=== PATIENT | female | born 1950 | race Caucasian/White ===

== ENCOUNTER → 2018-10-06 18:33 | Outpatient (CLI) | payer OTHER, SELFPAY ==
--- NOTE | 2018-10-06 | DI.MRI.S_ITS ---
PROCEDURE: MR KNEE LT WO CON INDICATIONS: Left knee pain TECHNIQUE: Noncontrast sagittal PD fast spin echo and T2 fast spin echo with fat saturation, sagittal 3-D FLASH with fat saturation; coronal T1 spin echo and PD fast spin echo with fat saturation, and axial PD fast spin echo with fat saturation through the knee. COMPARISON: None. FINDINGS: Image quality: Excellent. Menisci: There is an oblique tear of the anterior horn of the lateral meniscus which extends to the inferior articular surface. The medial meniscus demonstrates normal morphology and internal signal. The meniscal root ligaments appear intact. Cruciate ligaments: The anterior and posterior cruciate ligaments appear intact. Medial structures: The medial collateral ligament appears intact. The posterior oblique ligament, semimembranosus tendon insertions, oblique popliteal ligament, and meniscocapsular junction appear intact. Visualized portions of the pes anserinus tendons appear normal. No abnormal bursal fluid. Lateral structures: The lateral collateral ligament, long and short heads of the biceps femoris tendon appear intact. The popliteus tendon appears normal; the popliteofibular ligament appears intact. The posterosuperior and anteroinferior popliteomeniscal fascicles appear intact. The arcuate and fabellofibular ligaments appear intact, on either side of the lateral inferior geniculate artery. Iliotibial band appears normal. Anterior structures: The quadriceps and patellar tendons appear intact. Patellar alignment is normal. No femoral trochlear dysplasia or ventral trochlear prominence. No edema in the infrapatellar fat pad. Bones and cartilage: No bone marrow contusions or fractures. There is full-thickness loss of articular cartilage involving the lateral tibial plateau with subchondral marrow edema and cyst in the lateral tibial plateau. There is full-thickness loss of articular cartilage involving the lateral facet of the patella with subchondral cyst formation and reactive edema. Joint space: There is a small joint effusion. Moderate-sized popliteal cyst is noted. Normal appearing synovial plicae are incidentally noted. IMPRESSION: 1. Tear of the anterior horn of the lateral meniscus. 2. Lateral and patellofemoral compartment osteoarthritis with full-thickness loss of articular cartilage involving the lateral tibial plateau and the lateral facet of the patella. 3. Small joint effusion. 4. Moderate-sized popliteal cyst. Dictated by: Saranya Mckeon MD, PhD on 10/07/2018 at 22:17 Approved by: Saranya Mckeon MD, PhD on 10/07/2018 at 22:23
== END ==
PROVIDERS: PCP Physician Assistant; Visit Provider Physician Assistant
DX: M25.562 Pain in left knee (principal); S83.282A Other tear of lateral meniscus, current injury, left knee, initial encounter; M17.12 Unilateral primary osteoarthritis, left knee; M25.462 Effusion, left knee; M71.22 Synovial cyst of popliteal space [Baker], left knee
CPT/HCPCS: 73721

== ENCOUNTER → 2018-11-08 12:59 | Outpatient (CLI) | payer OTHER, SELFPAY ==
--- NOTE | 2018-11-08 | DI.MG.S_ITS ---
BILATERAL DIGITAL SCREENING MAMMOGRAM 3D/2D WITH CAD: 11/08/2018 CLINICAL: Routine screening. Family history of breast cancer. Comparison is made to exams dated: 11/04/2017 mammogram, 10/01/2016 mammogram, and 09/22/2015 mammogram - [facility]. The tissue of both breasts is heterogeneously dense. This may lower the sensitivity of mammography. Current study was also evaluated with a Computer Aided Detection (CAD) system. No significant masses, calcifications, or other findings are seen in either breast. There has been no significant interval change. IMPRESSION: NEGATIVE There is no mammographic evidence of malignancy. A 1 year screening mammogram is recommended. This exam was interpreted at Station ID: [id number]. NOTE: For mammograms, a report in lay terms will be sent to the patient. Approximately 15% of breast malignancies will not be visualized mammographically. In the management of a palpable breast mass, a negative mammogram must not discourage biopsy of a clinically suspicious lesion. Electronically Signed By: Mirlande sun/donal:11/08/2018 16:15:30 letter sent: Normal Exam ACR BI-RADS Category 1: Negative 3341F
== END ==
PROVIDERS: PCP Physician Assistant; Visit Provider Physician Assistant
DX: Z12.31 Encounter for screening mammogram for malignant neoplasm of breast (principal); Z80.3 Family history of malignant neoplasm of breast
CPT/HCPCS: 77063; 77067

== ENCOUNTER → 2019-07-24 12:49 | Outpatient (ROUT) | payer OTHER, SELFPAY ==
[2019-07-24 13:00] LABS: Add Manual Diff / Slide Review NO; Basophils Absolute Auto 0 /uL (0-100); Basophils Percent Auto 0.5 % (0-2); Eosinophils Absolute Auto 0 /uL (0-450); Eosinophils Percent Auto 1.2 % (2-4); Hematocrit 38.9 % (36-46); Hemoglobin 13.5 g/dL (12.0-16.0); Lymphocytes Absolute Auto 1200 /uL (1100-4500); Lymphocytes Percent Auto 36.8 % (25-40); Mean Corpuscular HGB Conc 34.8 % (30-36); Mean Corpuscular Hemoglobin 31.9 PG (26-34); Mean Corpuscular Volume 91.8 fL (80-100); Monocytes Absolute Auto 200 /uL (0-900); Neutrophils Absolute Auto 1800 /uL (1500-7000); Neutrophils Percent Auto 54.5 % (50-75); Platelet Count 143 X10^3/uL (150-400); Red Blood Cell Count 4.24 X10^6/uL (4.0-5.2); Red Cell Distribution Width 12.9 % (11.6-14.8); White Blood Cell Count 3.3 X10^3/uL (4.5-11.0)
[2019-07-24 13:06] LABS: Alanine Aminotransferase 28 IU/L (9-52); Albumin 3.8 g/dL (3.5-5.0); Albumin Globulin Ratio 1.5 (1.0-2.8); Alkaline Phosphatase 62 U/L (38-126); Aspartate Aminotransferase 33 IU/L (14-36); BUN Creatinine Ratio 25.7 (6-22); Bilirubin Total 0.5 mg/dL (0.2-1.3); Blood Urea Nitrogen 18 mg/dL (7-17); Calcium 9.3 mg/dL (8.4-10.2); Carbon Dioxide 31 mmol/L (22-32); Chloride 104 mmol/L (98-107); Cholesterol 181 mg/dL (140-199); Estimated Glomerular Filt Rate > 60.0 mL/min (>60); Globulin 2.5 g/dL (1.7-4.1); Glucose 84 mg/dL (80-110); HDL Cholesterol 73 mg/dL (40-60); HEMOLYSIS < 15 (0-50); LDL Cholesterol Calculated 101 mg/dL (<100); Potassium 4.3 mmol/L (3.4-5.1); Sodium 140 mmol/L (137-145); Total Protein 6.3 g/dL (6.3-8.2); Triglycerides 34 mg/dL (35-150)
== END ==
PROVIDERS: PCP Physician Assistant; Visit Provider Physician Assistant
DX: E78.5 Hyperlipidemia, unspecified (principal); R53.83 Other fatigue
CPT/HCPCS: 80053; 80061; 85025

== ENCOUNTER → 2019-08-30 13:49 | Outpatient (CLI) | payer OTHER, SELFPAY ==
[2019-08-30 14:31] LABS: Add Manual Diff / Slide Review NO; Basophils Absolute Auto 0 /uL (0-100); Basophils Percent Auto 0.6 % (0-2); Eosinophils Absolute Auto 0 /uL (0-450); Eosinophils Percent Auto 1.1 % (2-4); Hematocrit 39.9 % (36-46); Hemoglobin 13.8 g/dL (12.0-16.0); Lymphocytes Absolute Auto 1400 /uL (1100-4500); Lymphocytes Percent Auto 40.1 % (25-40); Mean Corpuscular HGB Conc 34.5 % (30-36); Mean Corpuscular Hemoglobin 31.7 PG (26-34); Mean Corpuscular Volume 91.9 fL (80-100); Monocytes Absolute Auto 200 /uL (0-900); Monocytes Percent Auto 7.1 % (3-14); Neutrophils Absolute Auto 1800 /uL (1500-7000); Neutrophils Percent Auto 51.1 % (50-75); Platelet Count 162 X10^3/uL (150-400); Red Blood Cell Count 4.35 X10^6/uL (4.0-5.2); Red Cell Distribution Width 12.8 % (11.6-14.8); White Blood Cell Count 3.4 X10^3/uL (4.5-11.0)
== END ==
PROVIDERS: PCP Physician Assistant; Visit Provider Physician Assistant
DX: D72.819 Decreased white blood cell count, unspecified (principal)
CPT/HCPCS: 36415; 85025

== ENCOUNTER → 2019-11-22 09:26 | Outpatient (CLI) | payer MEDICARE, SELFPAY ==
--- NOTE | 2019-11-22 | DI.MG.S_ITS ---
BILATERAL DIGITAL SCREENING MAMMOGRAM 3D/2D WITH CAD: 11/22/2019 CLINICAL: Routine screening. Family history of breast cancer. Comparison is made to exams dated: 11/08/2018 mammogram, 11/04/2017 mammogram, and 10/01/2016 mammogram - [facility]. The tissue of both breasts is heterogeneously dense. This may lower the sensitivity of mammography. Current study was also evaluated with a Computer Aided Detection (CAD) system. No significant masses, calcifications, or other findings are seen in either breast. There has been no significant interval change. IMPRESSION: NEGATIVE There is no mammographic evidence of malignancy. A 1 year screening mammogram is recommended. This exam was interpreted at Station ID: [id number]. NOTE: For mammograms, a report in lay terms will be sent to the patient. Approximately 15% of breast malignancies will not be visualized mammographically. In the management of a palpable breast mass, a negative mammogram must not discourage biopsy of a clinically suspicious lesion. Electronically Signed By: Giovanny bess/donal:11/22/2019 10:29:03 letter sent: Normal Exam ACR BI-RADS Category 1: Negative 3341F
== END ==
PROVIDERS: PCP Physician Assistant; Referring Provider Physician Assistant; Visit Provider Physician Assistant
DX: Z12.31 Encounter for screening mammogram for malignant neoplasm of breast (principal); Z80.3 Family history of malignant neoplasm of breast
CPT/HCPCS: 77063; 77067

== ENCOUNTER → 2019-11-30 15:01 | Outpatient (CLI) | payer MEDICARE, SELFPAY ==
[2019-11-30 15:52] LABS: Add Manual Diff / Slide Review NO; Basophils Absolute Auto 0 /uL (0-100); Basophils Percent Auto 0.7 % (0-2); Eosinophils Absolute Auto 100 /uL (0-450); Eosinophils Percent Auto 1.4 % (2-4); Hematocrit 39.7 % (36-46); Hemoglobin 13.6 g/dL (12.0-16.0); Lymphocytes Absolute Auto 1400 /uL (1100-4500); Lymphocytes Percent Auto 36.1 % (25-40); Mean Corpuscular HGB Conc 34.2 % (30-36); Mean Corpuscular Hemoglobin 31.3 PG (26-34); Mean Corpuscular Volume 91.6 fL (80-100); Monocytes Absolute Auto 300 /uL (0-900); Monocytes Percent Auto 7.4 % (3-14); Neutrophils Absolute Auto 2100 /uL (1500-7000); Neutrophils Percent Auto 54.4 % (50-75); Platelet Count 181 X10^3/uL (150-400); Red Blood Cell Count 4.33 X10^6/uL (4.0-5.2); Red Cell Distribution Width 12.5 % (11.6-14.8); White Blood Cell Count 3.8 X10^3/uL (4.5-11.0)
== END ==
PROVIDERS: PCP Physician Assistant; Referring Provider Physician Assistant; Visit Provider Physician Assistant
DX: E78.5 Hyperlipidemia, unspecified (principal)
CPT/HCPCS: 36415; 85025

== ENCOUNTER 2020-07-15 03:42 | Emergency (ER) | payer MEDICARE, SELFPAY ==
--- NOTE | 2020-07-15 03:43 | ED_ITS ---
HPI - Headache General Chief Complaint: Dizziness Stated Complaint: headache/ nausea vomiting dizziness Time Seen by Provider: 07/15/20 03:43 Source: patient and family Mode of arrival: Ambulatory Limitations: no limitations History of Present Illness HPI Narrative: 69F nonsmoker with a history of hyperlipidemia presents with the chief complaint of a sudden onset severe headache associated with dizziness and multiple episodes of vomiting which started shortly before her arrival. She states she went to sleep in her normal state of health and awoke, noting severe headache with even subtle motion and significant dizziness, which is also made worse by motion of her head. She finds relief sitting still, but not complete relief. She denies any history of the same. She denies any recent injuury or trauma. She's had no runny nose, sneezing, sore throat, cough, or trouble breathing. She denies blurred or double vision but does state that things are moving. Her balance is off and she is held up by her . She denies change in diet or medications. She denies recent travel or exposure to persons known to have COVID19. MD Complaint: headache Onset (ago): hour(s) Onset description: sudden Location: diffuse Severity: severe Severity scale (1-10): 9 Quality: aching, throbbing and different than previous headaches Relieving factors: rest Exacerbating factors: movement of head/neck, sitting/standing and light Context: occurred at rest Associated symptoms: nausea, vomiting and photophobia Treatments prior to arrival: ibuprofen Related Data Home Medications Medication Instructions Recorded Confirmed CALCIUM/CHOLECALCIFEROL/SODI 1 tab PO BID #0 05/07/11 (#CALCIUM WITH VITAMIN D 600 MG-400 IU-5 MG) Glucosamine Sulfate (GLUCOSAMINE) 500 mg PO BID #0 05/07/11 [COLON CARE] BID #0 05/07/11 simvastatin 20 mg PO QDAY #0 05/07/11 Previous Rx's Medication Instructions Recorded ketorolac 10 mg PO Q6H PRN #14 tab 07/15/20 metoclopramide HCl [Reglan] 10 mg PO Q6H PRN #10 tab 07/15/20 Allergies Allergy/AdvReac Type Severity Reaction Status Date / Time No Known Drug Allergies Allergy Verified 07/15/20 04:00 Review of Systems Constitutional Constitutional: Denies chills, Denies fatigue, Denies fever(s), Denies frequent falls, Reports headache(s), Denies lethargy and Denies weakness Eyes Eyes: Denies change in vision, Denies eye discharge, Denies irritation and Denies loss of vision ENT Ears, Nose, Mouth, and Throat: Denies change in voice, Reports dizziness, Reports headache(s), Denies neck pain, Denies sore throat and Denies throat swelling Cardiovascular Cardiovascular: Denies chest pain, Denies irregular heart rhythm, Denies lightheadedness, Denies palpitations, Denies dyspnea, Denies dyspnea on exertion and Denies orthopnea Respiratory Respiratory: Denies cough, Denies dyspnea, Denies dyspnea on exertion and Denies wheezing Gastrointestinal Gastrointestinal: Denies abdominal pain, Denies change in bowel habits, Denies diarrhea, Reports nausea and Reports vomiting Musculoskeletal Musculoskeletal: Denies neck pain and Denies numbness Integumentary/Breasts Skin/Breast: Denies pruritus, Denies erythema, Denies rash and Denies wounds Neurologic Neurologic: Denies behavioral changes, Denies confusion, Reports dizziness, Denies frequent falls, Reports headache(s), Denies loss of vision, Denies numbness and Denies weakness Psychiatric Psychiatric: Denies anxiety, Denies behavioral changes, Denies confusion, Denies depression, Denies homicidal ideation and Denies suicidal ideation Endocrine Endocrine: Denies fatigue, Denies flushing and Denies palpitations Hematologic/Lymphatic Hematologic/Lymphatic: Denies easy bruising Allergic/Immunologic Allergic/Immunologic: Denies urticaria, Denies throat swelling and Denies wheezing Patient History Social History Smoking Status: Never smoker Exam Narrative Exam Narrative: GENERAL: [69] year old patient appears stated age. Well- nourished, well-developed patient, in obvious distress, eyes closed, rubbing her head, requiring significant assistance with ambulation, stating minimal motion worsening pain and dizziness s. HEAD: Atraumatic. Normocephalic. EYES: Pupils equal round and reactive. Extraocular motions intact. No scleral icterus. No injection or drainage. ENT: Nose without bleeding, purulent drainage. Throat without erythema, tonsillar hypertrophy or exudate. Airway patent. NECK: Trachea midline. Non tender CARDIOVASCULAR: Regular rate and rhythm without murmurs, gallops, or rubs. RESPIRATORY: Clear to auscultation. Breath sounds equal bilaterally. No wheezes, rales, or rhonchi. GASTROINTESTINAL: Abdomen soft, non-tender, nondistended. EXTREMITIES: No edema or joint tenderness. BACK: Nontender without deformity or crepitance. No flank tenderness. NEURO: AOx3. SKIN: No rash or erythema of visible areas Initial Vital Signs Initial Vital Signs: Vital Signs Temperature 97.5 F L 07/15/20 03:57 Pulse Rate 58 L 07/15/20 03:57 Respiratory Rate 16 07/15/20 03:57 Blood Pressure 169/71 H 07/15/20 03:57 Pulse Oximetry 100 07/15/20 03:57 Scores NIH Stroke Scale Level of Conciousness: Alert, keenly responsive Ask month/age: Answers both questions correctly. Open/close eyes, close hand: Performs both tasks correctly Best gaze horizontal: Normal Visual sandra: No visual loss Facial palsy: Normal symetrical movement Left arm drift: No drift for full 10 sec Right arm drift: No drift for full 10 sec Left leg drift: No drift for full 5 sec Right leg drift: No drift for full 5 sec Limb ataxia: Absent Sensory on face/arms/legs: Normal, no sensory loss Best language: No aphasia, normal Dysarthria: Normal Extinction or inattention: No abnormality Total NIH Stroke scale score: 0 Course Orders Ordered: ED Orders 07/15/20 03:58 CT head/brain wo con Stat 07/15/20 04:00 Basic Metabolic Panel Stat Complete Blood Count AUTO DIFF Stat 07/15/20 04:42 CT angio head and neck Stat Discontinued Medications Dexamethasone (Decadron) 10 mg IV NOW ONE Stop: 07/15/20 04:29 Last Admin: 07/15/20 04:36 Dose: 10 mg Documented by: NINO Sodium Chloride (Normal Saline 0.9%) 1,000 mls @ 1,000 mls/hr IV BOLUS ONE Stop: 07/15/20 04:56 Last Admin: 07/15/20 04:06 Dose: 1,000 mls/hr Documented by: JOE Ketorolac Tromethamine (Toradol) 15 mg IV NOW ONE Stop: 07/15/20 04:29 Last Admin: 07/15/20 04:36 Dose: 15 mg Documented by: NINO Metoclopramide HCl (Reglan) 10 mg IV NOW ONE Stop: 07/15/20 03:58 Last Admin: 07/15/20 04:06 Dose: 10 mg Documented by: JOE Reevaluation(s) Reevaluation #1: Patient has a new complete resolution of symptoms after the above-stated therapies. She is able to communicate without difficulty, keep her eyes open, move her head, perform orthostatics ambulate through the department without trouble very Vital Signs Vital signs: Vital Signs - 8 hr 07/15/20 03:57 Temperature 97.5 F L Pulse Rate 58 L Respiratory Rate 16 Blood Pressure 169/71 H Pulse Oximetry 100 MDM - Headache Lab Data Result diagrams: 07/15/20 04:00 07/15/20 04:00 Labs: Lab Results 07/15/20 07/15/20 Range/Units 04:00 04:00 WBC 4.9 (4.5-11.0) X10^3/uL RBC 4.32 (4.0-5.2) X10^6/uL Hgb 13.6 (12.0-16.0) g/dL Hct 39.7 (36-46) % MCV 91.8 (80-100) fL MCH 31.6 (26-34) PG MCHC 34.4 (30-36) % RDW 12.9 (11.6-14.8) % Plt Count 164 (150-400) X10^3/uL Neut % (Auto) 69.3 (50-75) % Lymph % (Auto) 23.6 L (25-40) % [place] % (Auto) 6.2 (3-14) % Eos % (Auto) 0.6 L (2-4) % Baso % (Auto) 0.3 (0-2) % Neut # (Auto) 3400 (2716-7319) /uL Lymph # (Auto) 1100 (7823-9754) /uL [place] # (Auto) 300 (0-900) /uL Eos # (Auto) 0 (0-450) /uL Baso # (Auto) 0 (0-100) /uL Sodium 138 (137-145) mmol/L Potassium 4.4 (3.4-5.1) mmol/L Chloride 103 (98-107) mmol/L Carbon Dioxide 32 (22-32) mmol/L BUN 16 (7-17) mg/dL Creatinine 0.66 (0.52-1.04) mg/dL Estimated GFR > 60.0 (>60) mL/min BUN/Creatinine Ratio 24.2 H (6-22) Glucose 114 H (80-110) mg/dL Calcium 9.2 (8.4-10.2) mg/dL MDM Narrative Medical decision making narrative: Multiple etiologies for patient's symptoms considered including: [stroke vs. ICH vs. migraine vs. BPPV vs. other] Patient's symptoms improved over duration of stay with above-stated therapies. Findings and discharge diagnosis discussed with patient/family followed by verbalization of understanding Return precautions discussed with patient/family whom verbalize understanding. Discharge Plan Departure Patient Disposition: Home Clinical Impression: Dizziness Headache Qualifiers: Headache type: unspecified Headache chronicity pattern: acute headache Intractability: not intractable Qualified Code(s): R51.9 - Headache, unspecified Vomiting Qualifiers: Vomiting type: unspecified Vomiting Intractability: non-intractable Nausea presence: with nausea Qualified Code(s): R11.2 - Nausea with vomiting, unspecified Instructions: DI for Migraine Activity Restrictions/Additional Instructions: *You have been diagnosed with [severe headache with dizziness and vomiting, very likely could be secondary to an atypical migraine. Your physical exam, labs, CT scans, and response to medications are very reassuring.] *What to do: *Take medications as directed *Follow up with your primary care provider in 2-3 days, call for an appointment. Let them know you were seen in the Emergency Department and that we ask that you be seen in follow up *Return to ER if you should have any new, worsening or concerning symptoms Prescriptions: New ketorolac 10 mg tablet 10 mg PO Q6H PRN (Reason: pain) Qty: 14 RF: 0 metoclopramide HCl [Reglan] 10 mg tablet 10 mg PO Q6H PRN (Reason: nausea and vomiting) Qty: 10 RF: 0 No Action [COLON CARE] BID Qty: 0 RF: 0 Glucosamine Sulfate (GLUCOSAMINE) 500 mg PO BID Qty: 0 RF: 0 simvastatin 10 MG tablet 20 mg PO QDAY Qty: 0 RF: 0 CALCIUM/CHOLECALCIFEROL/SODI (#CALCIUM WITH VITAMIN D 600 MG-400 IU-5 MG) 1 tab PO BID Qty: 0 RF: 0 Referrals: France Winchester PA-C [Primary Care Provider] -
[2020-07-15 03:57] VITALS: BP 169/71; PULSE 58; RESP 16; TEMP 36.4; O2SAT 100; BMI 20.3
--- NOTE | 2020-07-15 03:58 | DI.CT.S_ITS ---
PROCEDURE: CT HEAD/BRAIN WO CON INDICATIONS: severe, sudden onset headache with vomiting TECHNIQUE: Noncontrast 4.5 mm thick angled axial sections acquired from the foramen magnum to the vertex, with coronal and sagittal reformats. For radiation dose reduction, the following was used: automated exposure control, adjustment of mA and/or kV according to patient size. COMPARISON: None. FINDINGS: Image quality: Excellent. CSF spaces: Basal cisterns are patent. No extra-axial fluid collections. Ventricles are normal in size and shape. Brain: No midline shift. No intracranial masses or hemorrhage. Morris-white matter interface is normal. Skull and face: Calvarium and visualized facial bones are intact, without suspicious lesions. Note is made of a partially calcified ovoid structure at the left superior occipital area, this is located near the occipital parietal junction, and measures up to 1.7 cm. Please correlate clinically. Sinuses: Visualized sinuses and mastoids are clear. IMPRESSION: No hemorrhage, no brain lesion found. Incidental note is made of a partially calcified ovoid 1.7 cm scalp mass-like lesion seen at the superior left occipital parietal junction area. Please correlate clinically. This is likely chronic by appearance and produces no change in the adjacent cortex. Dictated by: Ortega Spaulding M.D. on 07/15/2020 at 8:32 Approved by: Ortega Spaulding M.D. on 07/15/2020 at 8:35
[2020-07-15] MEDS: SODIUM CHLORIDE 0.9% 1,000 ML 1000 ML IV (04:06)
[2020-07-15] MEDS: METOCLOPRAMIDE 10 MG/2 ML INJ IV (04:06)
[2020-07-15 04:14] LABS: Add Manual Diff / Slide Review NO; Basophils Absolute Auto 0 /uL (0-100); Basophils Percent Auto 0.3 % (0-2); Eosinophils Absolute Auto 0 /uL (0-450); Eosinophils Percent Auto 0.6 % (2-4); Hematocrit 39.7 % (36-46); Hemoglobin 13.6 g/dL (12.0-16.0); Lymphocytes Absolute Auto 1100 /uL (1100-4500); Lymphocytes Percent Auto 23.6 % (25-40); Mean Corpuscular HGB Conc 34.4 % (30-36); Mean Corpuscular Hemoglobin 31.6 PG (26-34); Mean Corpuscular Volume 91.8 fL (80-100); Monocytes Absolute Auto 300 /uL (0-900); Monocytes Percent Auto 6.2 % (3-14); Neutrophils Absolute Auto 3400 /uL (1500-7000); Neutrophils Percent Auto 69.3 % (50-75); Platelet Count 164 X10^3/uL (150-400); Red Blood Cell Count 4.32 X10^6/uL (4.0-5.2); Red Cell Distribution Width 12.9 % (11.6-14.8); White Blood Cell Count 4.9 X10^3/uL (4.5-11.0)
[2020-07-15 04:23] LABS: BUN Creatinine Ratio 24.2 (6-22); Blood Urea Nitrogen 16 mg/dL (7-17); Calcium 9.2 mg/dL (8.4-10.2); Carbon Dioxide 32 mmol/L (22-32); Chloride 103 mmol/L (98-107); Estimated Glomerular Filt Rate > 60.0 mL/min (>60); Glucose 114 mg/dL (80-110); HEMOLYSIS 50 (0-50); Potassium 4.4 mmol/L (3.4-5.1); Sodium 138 mmol/L (137-145)
[2020-07-15] MEDS: KETOROLAC 60 MG/2 ML VIAL 15 MG IV (04:36)
[2020-07-15] MEDS: DEXAMETHASONE 10 MG/ML VIAL IV (04:36)
--- NOTE | 2020-07-15 04:42 | DI.CT.S_ITS ---
PROCEDURE: CT ANGIO HEAD AND NECK INDICATIONS: severe headache, dizziness, vomiting TECHNIQUE: Pre-contrast 4.5 mm thick sections acquired from the foramen magnum to the vertex. After the administration of intravenous contrast, 1 mm thick sections acquired from the aortic arch through the [place]. Post-contrast 4.5 mm thick sections then re-acquired from the foramen magnum to the vertex. 3-dimensional [id number] (MIP) and/or volume rendering reformats were acquired of the central intracranial vasculature and neck separately. COMPARISON: [facility], CT, CT HEAD/BRAIN WO CON, 07/15/2020, 4:00. FINDINGS: Image quality: Excellent. BRAIN: CSF spaces: Ventricles are normal in size and shape. Basal cisterns are patent. No extra-axial fluid collections. Brain: No midline shift. No intracranial bleeds or masses. Morris-white matter interface appears intact. Skull and face: Calvarium and facial bones appear intact, without suspicious lesions. Note is made of several bilateral ovoid partially calcified scalp structures with internal calcifications, in addition to the similar structure seen more superiorly on head CT scanning same day at the superior left occipital parietal calvarial margin.. Orbits appear normal. Sinuses: Sinuses and mastoids are clear. HEAD CT ANGIOGRAPHY: Anterior circulation: Intracranial internal carotid arteries are normal in size and flow. The flow within the paired anterior cerebral arteries is normal and symmetric. The flow within the middle cerebral arteries is normal and symmetric. The anterior communicating artery is seen. No aneurysms are seen. Posterior circulation: Visualized portions of the vertebral arteries demonstrate normal caliber, and join to form a normal appearing basilar artery. Flow within the posterior cerebral arteries is normal and symmetric. No aneurysms are seen. NECK CT ANGIOGRAPHY: Carotid system: The great vessels demonstrate a conventional anatomy as they arise from the aortic arch. The origins of the common carotid arteries appear patent. The common carotid arteries demonstrate normal caliber and courses. The bifurcation regions are both widely patent. The internal carotid arteries demonstrate normal calibers and courses. Posterior circulation: The origins of the vertebral arteries both appear widely patent. The more superior extracranial portions of both vertebral arteries also demonstrate normal courses and calibers. They join to form a normal appearing basilar artery. Soft tissues: Visualized neck soft tissues demonstrate no suspicious abnormalities. Bones: No suspicious bony lesions. Visualized cervical spine appears normally aligned. IMPRESSION: No evidence of aneurysm, hemorrhage or stenosis involving the cervical and cranial arterial vasculature. Incidental note made of several scattered bilateral ovoid small and moderate-sized scalp structures with internal calcifications, potentially partially calcified sebaceous cysts. The patient presumably would be aware of these structures. They appear chronic.. Any quantitative measurements of stenosis were performed using NASCET criteria. Dictated by: Ortega Spaulding M.D. on 07/15/2020 at 8:35 Approved by: Ortega Spaulding M.D. on 07/15/2020 at 8:42
[2020-07-15 06:06] VITALS: BP 124/75; BP 128/93; BP 141/61; PULSE 56; PULSE 66
== END 2020-07-15 06:17 | disposition home or self-care (01) ==
PROVIDERS: Emergency Provider Emergency Medicine; PCP Physician Assistant
DX: R42 Dizziness and giddiness (principal); R51.9 Headache, unspecified; R11.2 Nausea with vomiting, unspecified
CPT/HCPCS: 36415; 70450; 70496; 70498; 80048; 85025; 93005; 93010; 96361; 96374; 96375; 99284; J1100; J1885; J2765; Q9967

== ENCOUNTER → 2020-10-21 12:10 | Outpatient (CLI) | payer MEDICARE, SELFPAY ==
[2020-10-21] MEDS: COVID-19 VACC #1, MRNA(MOD) 100 MCG/0.5 ML VIAL IM (12:14)
== END ==
PROVIDERS: PCP Physician Assistant; Visit Provider Internal Medicine
DX: Z23 Encounter for immunization (principal)
CPT/HCPCS: 0011A; 91301

== ENCOUNTER 2020-10-22 09:45 | Outpatient (RCR) | payer MEDICARE, OTHER, SELFPAY ==
--- NOTE | 2020-08-06 14:19 | PT.OIE ---
Current Diagnoses Benign paroxysmal vertigo, right ear (08/06/20) Other symptoms and signs involving the nervous system (08/06/20) Dizziness and giddiness (08/06/20) Visit Care Team Role Provider Type France Winchester PA-C Attending Provider Advanced Brush Trimming Machine Setter Primary Care Provider Referring Provider Specialty: Internal Medicine Address: [address] [place] [address], [facility] Email: [email or web address] Initial Evaluation PT-OP-A Visit Information Start: 08/06/20 14:02 Freq: Status: Active Protocol: Document 08/06/20 09:45 DCW (Rec: 08/06/20 14:19 DCW [id number]) Out-Patient Physical Therapy Visit Information Visit Information Visit Type Initial Evaluation Visit Start Time 09:45 Visit Stop Time 10:30 Total Visit Minutes 45 Visit Number 1 Number of MEDICAL HISTORIAN Visits 0 Evaluation Information Evaluation Date 08/06/20 PT-OP-B Current Condition Start: 08/06/20 14:02 Freq: Status: Active Protocol: Document 08/06/20 09:45 DCW (Rec: 08/06/20 14:19 DCW [id number]) Current Condition History of Current Condition Onset Date 07/14/20 Current Complaints Dizziness/instability with positional changes History of Current Condition Pt is a 69 year old female complaining of a one month history of motion-induced vertigo and imbalance. Pt reports episodes last ~5 seconds. Pt's symptoms began on 07/14/20, reports she had some mild vertigo and instability x2 when looking up and bending over during the day, went to bed, and woke up after midnight with terrible spinning, sweating, chills, and nausea/vomiting. Pt reports she felt best if she stayed still, but got worse any time she attempted to move . Pt was taken to the ED, and slowly began to improve. Pt reports she is way better, but I'm still recovering, because she continues to get brief instances of vertigo with sudden movements or changing positions. Pt goes out for walks, which she notes helps her feel better, but she has bnot been going for runs like she usually does, because she fears all the bouncing will make her worse. Pt denies recent hearing changes, tinnitus, diplopia, dysarthria, discoordination, or decreased mentation/ consciousness. Pt reports symptoms are waxing/waning in nature. Pt denies hx of HTN, hyperlipidemia, diabetes, arrhythmia, head trauma, seizure, back/neck problems, CVA, anxiety/panic disorders, depression, or excessive smoking or drinking. Pt does have a history of migraines, but reports she doesn't think she has had any within the last five years. Prior Treatments and Tests CT and CTA at ED, results WNL Treatment Goals Patient/Caregiver Goals I want to know what's going on, and what I can do about it . PT-OP-C Subjective Start: 08/06/20 14:02 Freq: Status: Active Protocol: Document 08/06/20 09:45 DCW (Rec: 08/06/20 14:19 DCW [id number]) OP-PT Subjective Patient Comments Patient Comments They told me it was probably related to my migraines, but that doesn't really seem like it fits very well. When I saw France Mendozatricia, she told me it might have something to do with my inner ear. Patient Reported Progress Improving Patient Questionnaires Dizziness Handicap Inventory DHI Score 42% DHI Functional Impairment 40 to 59% Impaired (Score 40- 59) PT-OP-O Vestibular Start: 08/06/20 14:02 Freq: Status: Active Protocol: Document 08/06/20 09:45 DCW (Rec: 08/06/20 14:19 DCW [id number]) Vestibular Assessment Screening Tests Vestibular Artery Screen Negative Auditory Tests Zimmerman Test Within normal limits Rinne Test Negative Air Conduction Results Equal Visual Testing Smooth Pursuits Horizontal WNL Smooth Pursuits Vertical WNL Saccades Horizontal WNL Gaze Evoked Nystagmus With Fixation Negative Gaze Evoked Nystagmus Without Fixation Negative Heave Test Negative Thrust Head Negative Head Shake Negative Positional Testing [place]-Hallpike Positive Right,Upbeating,< 60 Seconds PT-OP-Q Treatments Start: 08/06/20 14:02 Freq: Status: Active Protocol: Document 08/06/20 09:45 DCW (Rec: 08/06/20 14:19 DCW [id number]) Canalithic Repositioning BPPV Treatment Jaya Affected Canal(s) R Posterior Reps x2 Comments Modified Jaya PT-OP-T Assessment and Plan Start: 08/06/20 14:02 Freq: Status: Active Protocol: Document 08/06/20 09:45 DCW (Rec: 08/06/20 14:19 DCW [id number]) Physical Therapy Assessment Rehab Potential Rehabilitation Potential Excellent Evaluation Complexity Number of Personal Factors/Comorbidities 0 Number of Body Systems Impaired 1-2 Clinical Presentation at Evaluation Stable Impairments Impairments Balance,Vestibular Goals Two Impairment Positive right [place]-Hallpike Purchasing Associate Goal (LTG) Pt to present with negative positional testing bilaterally LTG Duration 09/09/20 One Impairment Pt reports vertigo with positional changes Purchasing Associate Goal (LTG) Pt to report no vertigo with positional changes over the course of one week LTG Duration 09/09/20 Assessment Summary Assessment During right [place]-Hallpike test , pt complained of vertigo and demonstrated strong up- beating, torsional nystagmus lasting approximately 10 seconds, consistent with diagnosis of right-sided posterior canal BPPV, canalithiasis-type. Pt was treated with a right-sided modified Jaya maneuver. Pt complained of symptoms in the first and third position, which is normally indicative of a successful treatment. Further positional testing was negative. Pt was educated on BPPV, expectations for treatment, possible recurrence (BPPV has a ~50% recurrence rate in the five years following treatment), and post -Jaya restrictions. Pt to return in ~1-2 weeks for a follow-up appointment, and intermittently afterward as indicated for treatment of BPPV. Physical Therapy Plan Frequency and Duration Frequency of Treatment Every Other Week Duration of Treatment 6 weeks Plan of Care Start Date 08/06/20 Plan of Care End Date 09/17/20 Therapeutic Interventions Therapeutic Interventions Balance Training,Canalithic Repositioning,Vestibular Rehabilitation Next Visit Focus/Plan Next Note Type Treatment Note Next Visit Plan Positional testing and CRM as indicated
--- NOTE | 2020-08-06 14:19 | PT.OPPOC ---
Physical, Occupational & Speech Therapy At [facility] Current Diagnoses Benign paroxysmal vertigo, right ear (08/06/20) Other symptoms and signs involving the nervous system (08/06/20) Dizziness and giddiness (08/06/20) Visit Care Team Role Provider Type France Winchester PA-C Attending Provider Advanced [employer]analytics Team Lead Primary Care Provider Referring Provider Specialty: Internal Medicine Address: [address] [place] [address], [id number] Email: [email or web address] Plan Of Care PT-OP-T Assessment and Plan Start: 08/06/20 14:02 Freq: Status: Active Protocol: Document 08/06/20 09:45 DCW (Rec: 08/06/20 14:19 DCW [id number]) Physical Therapy Assessment Rehab Potential Rehabilitation Potential Excellent Evaluation Complexity Number of Personal Factors/Comorbidities 0 Number of Body Systems Impaired 1-2 Clinical Presentation at Evaluation Stable Impairments Impairments Balance,Vestibular Goals Two Impairment Positive right [place]-Hallpike Nursing Home Goal (LTG) Pt to present with negative positional testing bilaterally LTG Duration 09/09/20 One Impairment Pt reports vertigo with positional changes Nursing Home Goal (LTG) Pt to report no vertigo with positional changes over the course of one week LTG Duration 09/09/20 Assessment Summary Assessment During right [place]-Hallpike test , pt complained of vertigo and demonstrated strong up- beating, torsional nystagmus lasting approximately 10 seconds, consistent with diagnosis of right-sided posterior canal BPPV, canalithiasis-type. Pt was treated with a right-sided modified Jaya maneuver. Pt complained of symptoms in the first and third position, which is normally indicative of a successful treatment. Further positional testing was negative. Pt was educated on BPPV, expectations for treatment, possible recurrence (BPPV has a ~50% recurrence rate in the five years following treatment), and post -Jaya restrictions. Pt to return in ~1-2 weeks for a follow-up appointment, and intermittently afterward as indicated for treatment of BPPV. Physical Therapy Plan Frequency and Duration Frequency of Treatment Every Other Week Duration of Treatment 6 weeks Plan of Care Start Date 08/06/20 Plan of Care End Date 09/17/20 Therapeutic Interventions Therapeutic Interventions Balance Training,Canalithic Repositioning,Vestibular Rehabilitation Next Visit Focus/Plan Next Note Type Treatment Note Next Visit Plan Positional testing and CRM as indicated Plan of Care Dates Plan of Care Start Date 08/06/20 Plan of Care End Date 09/17/20 Electronically Signed by: Jerry Bowden, PT 08/06/20 [id number] Please Sign and Return: I have reviewed this Plan of Care and certify that the skilled therapy services above are required to meet the patient?s needs. Physician Signature Date Printed Name and Credentials Clinical Instructor Signature Printed Name and Credentials
--- NOTE | 2020-09-09 11:47 | PT.OTN ---
Current Diagnoses Benign paroxysmal vertigo, right ear (09/09/20) Other symptoms and signs involving the nervous system (09/09/20) Dizziness and giddiness (09/09/20) Physical Therapy Treatment Note PT-OP-A Visit Information Start: 08/06/20 14:02 Freq: Status: Active Protocol: Document 09/09/20 11:14 DCW (Rec: 09/09/20 11:47 DCW [id number]) Out-Patient Physical Therapy Visit Information Visit Information Visit Type Treatment Note Visit Start Time 11:14 Visit Stop Time 11:45 Total Visit Minutes 29 Visit Number 2 Number of SUPERVISOR SAFETY DEPOSIT Visits 0 Evaluation Information Evaluation Date 08/06/20 PT-OP-B Current Condition Start: 08/06/20 14:02 Freq: Status: Active Protocol: Document 08/06/20 09:45 DCW (Rec: 08/06/20 14:19 DCW [id number]) Current Condition History of Current Condition Onset Date 07/14/20 Current Complaints Dizziness/instability with positional changes History of Current Condition Pt is a 69 year old female complaining of a one month history of motion-induced vertigo and imbalance. Pt reports episodes last ~5 seconds. Pt's symptoms began on 07/14/20, reports she had some mild vertigo and instability x2 when looking up and bending over during the day, went to bed, and woke up after midnight with terrible spinning, sweating, chills, and nausea/vomiting. Pt reports she felt best if she stayed still, but got worse any time she attempted to move . Pt was taken to the ED, and slowly began to improve. Pt reports she is way better, but I'm still recovering, because she continues to get brief instances of vertigo with sudden movements or changing positions. Pt goes out for walks, which she notes helps her feel better, but she has bnot been going for runs like she usually does, because she fears all the bouncing will make her worse. Pt denies recent hearing changes, tinnitus, diplopia, dysarthria, discoordination, or decreased mentation/ consciousness. Pt reports symptoms are waxing/waning in nature. Pt denies hx of HTN, hyperlipidemia, diabetes, arrhythmia, head trauma, seizure, back/neck problems, CVA, anxiety/panic disorders, depression, or excessive smoking or drinking. Pt does have a history of migraines, but reports she doesn't think she has had any within the last five years. Prior Treatments and Tests CT and CTA at ED, results WNL Treatment Goals Patient/Caregiver Goals I want to know what's going on, and what I can do about it . PT-OP-C Subjective Start: 08/06/20 14:02 Freq: Status: Active Protocol: Document 09/09/20 11:14 DCW (Rec: 09/09/20 11:47 DCW [id number]) OP-PT Subjective Patient Comments Patient Comments Symptoms are improved but still present. Pt notes that for the first few days following her evaluation, she was completely better, but since then has noticed some mild return of symptoms. PT-OP-O Vestibular Start: 08/06/20 14:02 Freq: Status: Active Protocol: Document 09/09/20 11:14 DCW (Rec: 09/09/20 11:47 DCW [id number]) Vestibular Assessment Positional Testing [place]-Hallpike Positive Right,Upbeating,< 60 Seconds PT-OP-Q Treatments Start: 08/06/20 14:02 Freq: Status: Active Protocol: Document 09/09/20 11:14 DCW (Rec: 09/09/20 11:47 DCW [id number]) Canalithic Repositioning BPPV Treatment Jaya Affected Canal(s) R Posterior Reps x3 Comments [place] PT-OP-T Assessment and Plan Start: 08/06/20 14:02 Freq: Status: Active Protocol: Document 09/09/20 11:14 DCW (Rec: 09/09/20 11:47 DCW [id number]) Physical Therapy Assessment Impairments Impairments Balance,Vestibular Goals Two Impairment Positive right [place]-Hallpike Correction Goal (LTG) Pt to present with negative positional testing bilaterally LTG Duration 09/09/20 One Impairment Pt reports vertigo with positional changes Retail Client Solutions Consultant Goal (LTG) Pt to report no vertigo with positional changes over the course of one week LTG Duration 09/09/20 Assessment Summary Assessment Once again, during right Александр- Hallpike test, pt complained of vertigo and demonstrated up -beating, torsional nystagmus lasting approximately 10 seconds, consistent with diagnosis of right-sided posterior canal BPPV, canalithiasis-type. Pt was treated with a right-sided modified Jaya maneuver. Pt complained of symptoms in the first and third position, which is normally indicative of a successful treatment. A second [place]-Hallpike test was then performed, and pt demonstrated very mild symptoms. A second and third modified Jaya was performed. Pt to return intermittently as indicated for treatment of BPPV. Physical Therapy Plan Frequency and Duration Frequency of Treatment Every Other Week Duration of Treatment 6 weeks Plan of Care Start Date 08/06/20 Plan of Care End Date 09/17/20 Therapeutic Interventions Therapeutic Interventions Balance Training,Canalithic Repositioning,Vestibular Rehabilitation Next Visit Focus/Plan Next Note Type Treatment Note Next Visit Plan Positional testing and CRM as indicated
--- NOTE | 2020-10-06 09:53 | PT-OP ANOTE ---
Pt arrived for her scheduled appointment. Unfortunately, since pt was last seen, she has changed insurance providers, and was unaware that her new one require pre-authorization prior to any PT visits. Pt's appointment will be rescheduled to a later date, and clinic will work on getting authorization. In the mean time, pt was provided with a handout describing a right-sided self-Jaya maneuver.
--- NOTE | 2020-10-22 10:04 | PT.OTN ---
Current Diagnoses Benign paroxysmal vertigo, right ear (10/22/20) Other symptoms and signs involving the nervous system (10/22/20) Dizziness and giddiness (10/22/20) Physical Therapy Treatment Note PT-OP-A Visit Information Start: 08/06/20 14:02 Freq: Status: Active Protocol: Document 10/22/20 09:45 DCW (Rec: 10/22/20 10:04 DCW [id number]) Out-Patient Physical Therapy Visit Information Visit Information Visit Type Discharge Summary Visit Start Time 09:45 Visit Stop Time 10:02 Total Visit Minutes 12 Visit Number 3 Number of ACCOUNT DEVELOPMENT REPRESENTATIVE Visits 0 Evaluation Information Evaluation Date 08/06/20 PT-OP-B Current Condition Start: 08/06/20 14:02 Freq: Status: Active Protocol: Document 08/06/20 09:45 DCW (Rec: 08/06/20 14:19 DCW [id number]) Current Condition History of Current Condition Onset Date 07/14/20 Current Complaints Dizziness/instability with positional changes History of Current Condition Pt is a 69 year old female complaining of a one month history of motion-induced vertigo and imbalance. Pt reports episodes last ~5 seconds. Pt's symptoms began on 07/14/20, reports she had some mild vertigo and instability x2 when looking up and bending over during the day, went to bed, and woke up after midnight with terrible spinning, sweating, chills, and nausea/vomiting. Pt reports she felt best if she stayed still, but got worse any time she attempted to move . Pt was taken to the ED, and slowly began to improve. Pt reports she is way better, but I'm still recovering, because she continues to get brief instances of vertigo with sudden movements or changing positions. Pt goes out for walks, which she notes helps her feel better, but she has bnot been going for runs like she usually does, because she fears all the bouncing will make her worse. Pt denies recent hearing changes, tinnitus, diplopia, dysarthria, discoordination, or decreased mentation/ consciousness. Pt reports symptoms are waxing/waning in nature. Pt denies hx of HTN, hyperlipidemia, diabetes, arrhythmia, head trauma, seizure, back/neck problems, CVA, anxiety/panic disorders, depression, or excessive smoking or drinking. Pt does have a history of migraines, but reports she doesn't think she has had any within the last five years. Prior Treatments and Tests CT and CTA at ED, results WNL Treatment Goals Patient/Caregiver Goals I want to know what's going on, and what I can do about it . PT-OP-C Subjective Start: 08/06/20 14:02 Freq: Status: Active Protocol: Document 10/22/20 09:45 DCW (Rec: 10/22/20 10:04 DCW [id number]) OP-PT Subjective Patient Comments Patient Comments It might be gone, but it's hard to say for sure. Notes she is not dizzy getting out of bed anymore. PT-OP-O Vestibular Start: 08/06/20 14:02 Freq: Status: Active Protocol: Document 10/22/20 09:45 DCW (Rec: 10/22/20 10:04 DCW [id number]) Vestibular Assessment Positional Testing [place]-Hallpike Negative Left,Negative Right Rolling Test Negative Left,Negative Right PT-OP-Q Treatments Start: 08/06/20 14:02 Freq: Status: Active Protocol: Document 10/22/20 09:45 DCW (Rec: 10/22/20 10:04 DCW [id number]) Manual Therapy Treatment Other Other Manual Treatments Positional Testing PT-OP-T Assessment and Plan Start: 08/06/20 14:02 Freq: Status: Active Protocol: Document 10/22/20 09:45 DCW (Rec: 10/22/20 10:04 DCW [id number]) Physical Therapy Assessment Impairments Impairments Balance,Vestibular Goals Two Impairment Positive right [place]-Hallpike Faculty I On Call Medical Assistant Goal (LTG) Pt to present with negative positional testing bilaterally LTG Duration Met One Impairment Pt reports vertigo with positional changes Faculty I On Call Medical Assistant Goal (LTG) Pt to report no vertigo with positional changes over the course of one week LTG Duration Met Progress Towards Goals Progress Towards Goals Goals Met Assessment Summary Assessment Positional testing entirely negative today. Pt reports she has not been experiencing any vertigo with positional changes. BPPV is resolved, pt will be discharged at this time. Pt instructed to return with a new referral if symptoms recur. Physical Therapy Plan Frequency and Duration Frequency of Treatment 1x/Week Duration of Treatment 1 day Plan of Care Start Date 10/22/20 Plan of Care End Date 10/23/20 Therapeutic Interventions Therapeutic Interventions Balance Training,Canalithic Repositioning,Vestibular Rehabilitation Discharge Physical Therapy Discharge Reasons Goals Met Next Visit Focus/Plan Next Note Type Discharge Summary
--- NOTE | 2020-10-22 10:04 | PT.OPPOC ---
Physical, Occupational & Speech Therapy At Current Diagnoses Benign paroxysmal vertigo, right ear (10/22/20) Other symptoms and signs involving the nervous system (10/22/20) Dizziness and giddiness (10/22/20) Visit Care Team Role Provider Type France Winchester PA-C Attending Provider Advanced Bed Maker Primary Care Provider Referring Provider Specialty: Internal Medicine Address: [address] [place] [address], [id number] Email: [email or web address] PT-OP-T Assessment and Plan Start: 08/06/20 14:02 Freq: Status: Active Protocol: Document 10/22/20 09:45 DCW (Rec: 10/22/20 10:04 DCW [id number]) Physical Therapy Assessment Impairments Impairments Balance,Vestibular Goals Two Impairment Positive right [place]-Hallpike Residential Goal (LTG) Pt to present with negative positional testing bilaterally LTG Duration Met One Impairment Pt reports vertigo with positional changes Residential Goal (LTG) Pt to report no vertigo with positional changes over the course of one week LTG Duration Met Progress Towards Goals Progress Towards Goals Goals Met Assessment Summary Assessment Positional testing entirely negative today. Pt reports she has not been experiencing any vertigo with positional changes. BPPV is resolved, pt will be discharged at this time. Pt instructed to return with a new referral if symptoms recur. Physical Therapy Plan Frequency and Duration Frequency of Treatment 1x/Week Duration of Treatment 1 day Plan of Care Start Date 10/22/20 Plan of Care End Date 10/23/20 Therapeutic Interventions Therapeutic Interventions Balance Training,Canalithic Repositioning,Vestibular Rehabilitation Discharge Physical Therapy Discharge Reasons Goals Met Next Visit Focus/Plan Next Note Type Discharge Summary Plan of Care Dates Plan of Care Start Date 10/22/20 Plan of Care End Date 10/23/20 Electronically Signed by: Jerry Bowden, PT 10/22/20 1004 Please Sign and Return: I have reviewed this Plan of Care and certify that the skilled therapy services above are required to meet the patient?s needs. Physician Signature Date Printed Name and Credentials Clinical Instructor Signature Printed Name and Credentials
== END 2020-10-27 15:04 | disposition home or self-care (01) ==
LOC: PHYS 09:45
PROVIDERS: PCP Physician Assistant; Referring Provider Physician Assistant; Visit Provider Physician Assistant
DX: H81.11 Benign paroxysmal vertigo, right ear (principal); R29.818 Other symptoms and signs involving the nervous system
CPT/HCPCS: 95992; 97140; 97161

== ENCOUNTER → 2020-11-18 12:20 | Outpatient (CLI) | payer MEDICARE, SELFPAY ==
[2020-11-18] MEDS: COVID-19 VACC #2, MRNA(MOD) 100 MCG/0.5 ML VIAL IM (12:34)
== END ==
PROVIDERS: PCP Physician Assistant; Visit Provider Internal Medicine
DX: Z23 Encounter for immunization (principal)
CPT/HCPCS: 0012A; 91301

== ENCOUNTER → 2020-11-24 10:21 | Outpatient (CLI) | payer OTHER, SELFPAY | PROVIDERS: PCP Physician Assistant; Referring Provider Physician Assistant; Visit Provider Physician Assistant | DX: Z12.31 Encounter for screening mammogram for malignant neoplasm of breast (principal); Z53.9 Procedure and treatment not carried out, unspecified reason | CPT/HCPCS: 77063; 77067 ==

== ENCOUNTER → 2021-01-05 10:25 | Outpatient (CLI) | payer OTHER, SELFPAY ==
--- NOTE | 2021-01-05 | DI.MG.S_ITS ---
BILATERAL DIGITAL SCREENING MAMMOGRAM 3D/2D WITH CAD: 01/05/2021 CLINICAL: Routine screening. Family history of breast cancer. Comparison is made to exams dated: 11/22/2019 mammogram, 11/08/2018 mammogram, and 11/04/2017 mammogram - [facility]. The tissue of both breasts is heterogeneously dense. This may lower the sensitivity of mammography. Current study was also evaluated with a Computer Aided Detection (CAD) system. No significant masses, calcifications, or other findings are seen in either breast. There has been no significant interval change. IMPRESSION: NEGATIVE There is no mammographic evidence of malignancy. A 1 year screening mammogram is recommended. This exam was interpreted at Station ID: [id number]. NOTE: For mammograms, a report in lay terms will be sent to the patient. Approximately 15% of breast malignancies will not be visualized mammographically. In the management of a palpable breast mass, a negative mammogram must not discourage biopsy of a clinically suspicious lesion. Electronically Signed By: Mirlande sun/donal:01/05/2021 16:26:54 letter sent: Normal Exam ACR BI-RADS Category 1: Negative [id number]
== END ==
PROVIDERS: PCP Physician Assistant; Referring Provider Physician Assistant; Visit Provider Physician Assistant
DX: Z12.31 Encounter for screening mammogram for malignant neoplasm of breast (principal); Z80.3 Family history of malignant neoplasm of breast
CPT/HCPCS: 77063; 77067

== ENCOUNTER → 2021-02-06 19:04 | Outpatient (ROUT) | payer OTHER, SELFPAY ==
[2021-02-06 19:57] LABS: Add Manual Diff / Slide Review NO; Basophils Absolute Auto 0 /uL (0-100); Basophils Percent Auto 0.7 % (0-2); Eosinophils Absolute Auto 100 /uL (0-450); Eosinophils Percent Auto 1.6 % (2-4); Hematocrit 40.5 % (36-46); Hemoglobin 13.6 g/dL (12.0-16.0); Lymphocytes Absolute Auto 1400 /uL (1100-4500); Lymphocytes Percent Auto 41.6 % (25-40); Mean Corpuscular HGB Conc 33.6 % (30-36); Mean Corpuscular Hemoglobin 30.9 PG (26-34); Monocytes Absolute Auto 200 /uL (0-900); Monocytes Percent Auto 7.2 % (3-14); Neutrophils Absolute Auto 1600 /uL (1500-7000); Neutrophils Percent Auto 48.9 % (50-75); Platelet Count 172 X10^3/uL (150-400); Red Cell Distribution Width 13.1 % (11.6-14.8); White Blood Cell Count 3.3 X10^3/uL (4.5-11.0)
[2021-02-06 20:05] LABS: Alanine Aminotransferase 19 IU/L (<35); Albumin 3.6 g/dL (3.5-5.0); Albumin Globulin Ratio 1.6 (1.0-2.8); Alkaline Phosphatase 60 U/L (38-126); Aspartate Aminotransferase 36 IU/L (14-36); BUN Creatinine Ratio 20.3 (6-22); Bilirubin Total 0.3 mg/dL (0.2-1.3); Blood Urea Nitrogen 15 mg/dL (7-17); Calcium 9.4 mg/dL (8.4-10.2); Carbon Dioxide 29 mmol/L (22-32); Chloride 108 mmol/L (98-107); Cholesterol 216 mg/dL (140-199); Estimated Glomerular Filt Rate > 60.0 mL/min (>60); Globulin 2.3 g/dL (1.7-4.1); Glucose 81 mg/dL (80-110); HDL Cholesterol 88 mg/dL (40-60); HEMOLYSIS < 15 (0-50); LDL Cholesterol Calculated 119 mg/dL (<100); Potassium 4.2 mmol/L (3.4-5.1); Sodium 139 mmol/L (137-145); Total Protein 5.9 g/dL (6.3-8.2); Triglycerides 44 mg/dL (35-150)
== END ==
PROVIDERS: PCP Physician Assistant; Visit Provider Physician Assistant
DX: E78.5 Hyperlipidemia, unspecified (principal)
CPT/HCPCS: 80053; 80061; 85025

== ENCOUNTER → 2021-02-11 14:10 | Outpatient (CLI) | payer OTHER, SELFPAY | PROVIDERS: PCP Physician Assistant; Referring Provider Physician Assistant; Visit Provider Physician Assistant | DX: Z78.0 Asymptomatic menopausal state (principal); M85.88 Other specified disorders of bone density and structure, other site | CPT/HCPCS: 77080 ==

== ENCOUNTER 2021-05-13 17:17 | Emergency (ER) | payer OTHER, SELFPAY ==
[2021-05-13 17:26] VITALS: BP 122/67; PULSE 60; RESP 16; TEMP 36.8; O2SAT 98
[2021-05-13 17:58] LABS: COVID19 -Nasal RAPID Negative (Negative)
--- NOTE | 2021-05-13 18:47 | ED_ITS ---
HPI - Recheck/Abnormal Lab/Rx <David Walters PA-C - Last Filed: 05/13/21 18:52> General Chief Complaint: Recheck/Abnormal Lab/Rx Stated Complaint: wants covid test Time Seen by Provider: 05/13/21 18:31 Source: patient Mode of arrival: Ambulatory History of Present Illness HPI narrative: Emily presents today with chief complaint of possible exposure to COVID. She reports that some house guests that were recently at their house just called and notified them that prior to the guests visiting the [place], they were possibly exposed to an individual that had COVID at a wedding. Emily does not have any significant symptoms or concerns at this time. She is fully vaccinated for COVID. They are going to be traveling to [place] in 2 weeks and wanted to get tested. Related Data Home Medications Medication Instructions Recorded Confirmed CALCIUM/CHOLECALCIFEROL/SODI 1 tab PO BID #0 05/07/11 (#CALCIUM WITH VITAMIN D 600 MG-400 IU-5 MG) Glucosamine Sulfate (GLUCOSAMINE) 500 mg PO BID #0 05/07/11 [COLON CARE] BID #0 05/07/11 simvastatin 10 mg tablet 20 mg PO QDAY #0 05/07/11 Previous Rx's Medication Instructions Recorded ketorolac 10 mg tablet 10 mg PO Q6H PRN #14 tab 07/15/20 metoclopramide HCl 10 mg tablet 10 mg PO Q6H PRN #10 tab 07/15/20 (Reglan) Allergies Allergy/AdvReac Type Severity Reaction Status Date / Time No Known Drug Allergies Allergy Verified 07/15/20 04:00 Review of Systems <David Walters PA-C - Last Filed: 05/13/21 18:52> Review of Systems Narrative: As per HPI Patient History <David Walters PA-C - Last Filed: 05/13/21 18:52> Social History Smoking Status: Never smoker Smoking Status: Never smoker alcohol intake frequency: 0-2 drinks per day Substance Use Type: does not use Exam <David Walters PA-C - Last Filed: 05/13/21 18:52> Narrative Exam Narrative: Exam Narrative: Const General: cooperative, healthy appearing, comfortable, no acute distress, well developed and well groomed Nutritional Appearance: average body habitus Orientation: alert and oriented x3 HENMT Head: normal to inspection and atraumatic Ears: hearing grossly normal bilaterally Nose: external nose normal and nares normal Face and sinus: normal facial exam Neck Neck: normal visual inspection and supple Resp Effort & Inspection: normal respiratory effort, able to speak in complete sentences, no audible wheezes, not labored, no nasal flaring and no respiratory distress Neuro General: alert, oriented x3, gait normal, tone normal and moves all extremities Cognition: normal cognition Speech: speech normal Gait: normal gait Psych Appearance: grossly normal and well kempt Mental Status: mental status grossly normal Speech and Movement: speech and movement normal Mood: congruent mood Affect: normal affect Initial Vital Signs Initial Vital Signs: Vital Signs Temperature 98.2 F 05/13/21 17:26 Pulse Rate 60 05/13/21 17:26 Respiratory Rate 16 05/13/21 17:26 Blood Pressure 122/67 05/13/21 17:26 Pulse Oximetry 98 05/13/21 17:26 <Kacie Hung MD - Last Filed: 05/13/21 22:25> Initial Vital Signs Initial Vital Signs: Vital Signs Temperature 98.2 F 05/13/21 17:26 Pulse Rate 60 05/13/21 17:26 Respiratory Rate 16 05/13/21 17:26 Blood Pressure 122/67 05/13/21 17:26 Pulse Oximetry 98 05/13/21 17:26 Course <David Walters PA-C - Last Filed: 05/13/21 18:52> Orders Ordered: ED Orders 05/13/21 17:33 COVID19 -Nasal swab/Pre-Proc Stat Vital Signs Vital signs: Vital Signs - 8 hr 05/13/21 17:26 Temperature 98.2 F Pulse Rate 60 Respiratory Rate 16 Blood Pressure 122/67 Pulse Oximetry 98 <Kacie Hung MD - Last Filed: 05/13/21 22:25> Orders Ordered: ED Orders 05/13/21 17:33 COVID19 -Nasal swab/Pre-Proc Stat Vital Signs Vital signs: Vital Signs - 8 hr 05/13/21 17:26 Temperature 98.2 F Pulse Rate 60 Respiratory Rate 16 Blood Pressure 122/67 Pulse Oximetry 98 MDM - Recheck/Abnormal Lab/Rx <David Walters PA-C - Last Filed: 05/13/21 18:52> Lab Data Labs: Lab Results 05/13/21 Range/Units 17:33 SARS-CoV-2 (PCR) Negative (Negative) MDM Narrative Medical decision making narrative: Emily is an otherwise healthy 70-year-old female with questionable exposure to COVID and a negative COVID test who is currently asymptomatic and fully vaccinated. Recommend no further intervention at this time and PCP follow-up as needed. Return precautions were discussed wit h the patient. Patient verbalizes understanding and agrees to plan and has no further concerns at this time. Thank you A [id number] system was used with the dictation of this note. Please disre salvador any spelling or grammatical errors. <Kacie Hung MD - Last Filed: 05/13/21 22:25> Lab Data Labs: Lab Results 05/13/21 Range/Units 17:33 SARS-CoV-2 (PCR) Negative (Negative) Discharge Plan Departure Patient Disposition: Home Clinical Impression: Encounter for laboratory testing for COVID-19 virus Instructions: DI for COVID-19 (Suspected or Confirmed ) Activity Restrictions/Additional Instructions: It was very nice to meet you this evening. Your COVID test came back negative as well as your 's. Please follow-up with your PCP for any additional concerns or complaints. Thank you David Walters PAC Prescriptions: No Action [COLON CARE] BID Qty: 0 RF: 0 Glucosamine Sulfate (GLUCOSAMINE) 500 mg PO BID Qty: 0 RF: 0 simvastatin 10 MG tablet 20 mg PO QDAY Qty: 0 RF: 0 CALCIUM/CHOLECALCIFEROL/SODI (#CALCIUM WITH VITAMIN D 600 MG-400 IU-5 MG) 1 tab PO BID Qty: 0 RF: 0 ketorolac 10 mg tablet 10 mg PO Q6H PRN (Reason: pain) Qty: 14 RF: 0 metoclopramide HCl [Reglan] 10 mg tablet 10 mg PO Q6H PRN (Reason: nausea and vomiting) Qty: 10 RF: 0 Referrals: France Winchester PA-C [Primary Care Provider] - <Kacie Hung MD - Last Filed: 05/13/21 22:25> Cosign ED Attending Feliciaature Attestation: I was immediately available in the department for consultation throughout this patient's visit. I agree with documentation as above. Kacie Hung MD
== END 2021-05-13 18:50 | disposition home or self-care (01) ==
PROVIDERS: Emergency Medicine; Emergency Provider Physician Assistant; PCP Physician Assistant
DX: Z20.822 Contact with and (suspected) exposure to COVID-19 (principal)
CPT/HCPCS: 87635; 99281; 99282; C9803

== ENCOUNTER → 2022-02-16 11:01 | Outpatient (CLI) | payer OTHER, SELFPAY ==
--- NOTE | 2022-02-16 | DI.MG.S_ITS ---
BILATERAL DIGITAL SCREENING MAMMOGRAM 3D/2D WITH CAD: 02/16/2022 CLINICAL: Routine screening. Family history of breast cancer. Comparison is made to exams dated: 01/05/2021 mammogram, 11/22/2019 mammogram, and 11/08/2018 mammogram - [facility]. The tissue of both breasts is heterogeneously dense. This may lower the sensitivity of mammography. Current study was also evaluated with a Computer Aided Detection (CAD) system. No significant masses, calcifications, or other findings are seen in either breast. There has been no significant interval change. IMPRESSION: NEGATIVE There is no mammographic evidence of malignancy. A 1 year screening mammogram is recommended. This exam was interpreted at Station ID: [id number]. NOTE: For mammograms, a report in lay terms will be sent to the patient. Approximately 15% of breast malignancies will not be visualized mammographically. In the management of a palpable breast mass, a negative mammogram must not discourage biopsy of a clinically suspicious lesion. Electronically Signed By: Mirlande sun/donal:02/16/2022 11:59:26 letter sent: Normal Exam ACR BI-RADS Category 1: Negative 3341F
== END ==
PROVIDERS: PCP Physician Assistant; Referring Provider Physician Assistant; Visit Provider Physician Assistant
DX: Z12.31 Encounter for screening mammogram for malignant neoplasm of breast (principal); Z80.3 Family history of malignant neoplasm of breast
CPT/HCPCS: 77063; 77067

== ENCOUNTER → 2022-11-13 09:25 | Outpatient (CLI) | payer OTHER, SELFPAY ==
[2022-11-13 11:00] LABS: Influenza A - CEPHEID Flu A NEGATIVE (NEGATIVE); Influenza B - CEPHEID Flu B NEGATIVE (NEGATIVE); Respiratory Syncytial Virus Negative (Negative)
[2022-11-13 12:02] LABS: COVID-19 CEPHEID 4-PLEX PCR Negative (Negative)
== END ==
PROVIDERS: PCP Physician Assistant; Visit Provider Registered Nurse
DX: J02.9 Acute pharyngitis, unspecified (principal); Z20.822 Contact with and (suspected) exposure to COVID-19
CPT/HCPCS: 0241U; 87070

== ENCOUNTER → 2023-02-18 09:56 | Outpatient (CLI) | payer OTHER, SELFPAY ==
--- NOTE | 2023-02-18 | DI.MG.S_ITS ---
BILATERAL DIGITAL SCREENING MAMMOGRAM 3D/2D WITH CAD: 02/18/2023 CLINICAL: Routine screening. Family history of breast cancer. Comparison is made to exams dated: 02/16/2022 mammogram and 11/22/2019 mammogram - [facility]. Both breasts are heterogeneously dense, which may obscure small masses (category c / 51-75% glandular tissue). Current study was also evaluated with a Computer Aided Detection (CAD) system. No significant masses, calcifications, or other findings are seen in either breast. There has been no significant interval change. IMPRESSION: NEGATIVE There is no mammographic evidence of malignancy. A 1 year screening mammogram is recommended. Based on the Tyrer Cuzick model (a risk assessment model) the patient's lifetime risk is 8.6% and her 10 year risk is 5.9%. According to the ACR, ACS, and NCCN guidelines, an annual breast MRI exam along with mammogram is recommended if the patient's lifetime risk is 20% or greater. This exam was interpreted at Station ID: [id number]. NOTE: For mammograms, a report in lay terms will be sent to the patient. Approximately 15% of breast malignancies will not be visualized mammographically. In the management of a palpable breast mass, a negative mammogram must not discourage biopsy of a clinically suspicious lesion. Electronically Signed By: Luis lopez/donal:02/18/2023 12:51:31 letter sent: Normal Exam ACR BI-RADS Category 1: Negative 3341F
== END ==
PROVIDERS: PCP Physician Assistant; Referring Provider Physician Assistant; Visit Provider Physician Assistant
DX: Z12.31 Encounter for screening mammogram for malignant neoplasm of breast (principal); Z80.3 Family history of malignant neoplasm of breast
CPT/HCPCS: 77063; 77067

== ENCOUNTER 2023-06-15 07:57 | Day surgery (SDC) | payer OTHER, SELFPAY ==
[2023-06-15] VITALS (7 sets, daily range): BP systolic 95–125; BP diastolic 52–76; PULSE 51–76; RESP 12–17; TEMP 36.1–36.8; O2SAT 94–99; BMI 20.9
[2023-06-15] MEDS: LACTATED RINGERS 1,000 ML 150 ML IV (08:28)
--- NOTE | 2023-06-15 08:44 | P.HP_ITS ---
History of Present Illness History of Present Illness Chief complaint: Colonoscopy Narrative: Ten year follow-up colonoscopy. Family history of colon polyps [facility] Social History household members: spouse Smoking Status: Never smoker alcohol intake: current Meds Home Medications and Allergies Home Medications Medication Instructions Recorded Confirmed Type CALCIUM/CHOLECALCIFEROL/SODI 1 tab PO BID ##0 05/07/11 06/15/23 History (#CALCIUM WITH VITAMIN D 600 MG-400 IU-5 MG) [COLON CARE] BID ##0 05/07/11 History simvastatin 10 mg tablet 20 mg PO QDAY ##0 05/07/11 06/15/23 History citalopram 10 mg tablet 10 mg PO DAILY 11/13/22 06/15/23 History Allergies Allergy/AdvReac Type Severity Reaction Status Date / Time No Known Drug Allergies Allergy Verified 11/13/22 09:32 Exam Vital Signs (past 8 hours): - 06/15/23 08:05 Temperature 98.2 F Pulse Rate 76 Respiratory Rate 17 Blood Pressure 114/76 Pulse Oximetry 98 Oxygen Delivery Method Room Air Oxygen Delivery Method Room Air Narrative Exam Narrative: Oropharynx free oropharynx free of lesions Chest clear to auscultation percussion Cardiac exam reveals no S3 or murmur Assessment & Plan Assessment & Plan narrative: Ten year follow-up colonoscopy. Family history of colon polyps. Need for follow-up colonoscopy. Risks, benefits, alternatives have been explained.
--- NOTE | 2023-06-15 08:45 | PM.OP.COLON ---
Operative Date/Time/Diagnoses Date of procedure: 06/15/23 Pre-op diagnosis: See indication and findings Procedure & Clinicians Study performed: Colonoscopy Indications: 10 year follow-up. Family history of colon polyps Surgeon: Micky Sullivan Procedure Notes Procedure in detail: After informed consent was obtained the patient was placed in left lateral decubitus position. The video colonoscope was introduced the rectum slowly advanced cecum. Preparation was good. On slow withdrawal mucosa was carefully examined. The scope was removed. The patient tolerated procedure well. Blood loss none Complications none Sedation mac Findings 1. Normal colonoscopy to cecum 2. Moderate internal hemorrhoids Patient should have follow-up colonoscopy in 10 years
== END 2023-06-15 10:24 | disposition home or self-care (01) ==
PROVIDERS: PCP Physician Assistant; Referring Provider Internal Medicine Gastroenterology; Visit Provider Internal Medicine Gastroenterology
PROC: 0DJD8ZZ Inspection of Lower Intestinal Tract, Via Natural or Artificial Opening Endoscopic (ICD-10-PCS; CPT 45378; principal; 2023-06-15 09:00)
DX: Z12.11 Encounter for screening for malignant neoplasm of colon (principal); Z83.71 Family history of colonic polyps; K64.8 Other hemorrhoids
CPT/HCPCS: G0105; J2704

== ENCOUNTER → 2024-02-24 07:59 | Outpatient (CLI) | payer MEDICARE, SELFPAY ==
--- NOTE | 2024-02-24 08:01 | DI.MG.S_ITS ---
BILATERAL DIGITAL SCREENING MAMMOGRAM 3D/2D WITH CAD: 02/24/2024 CLINICAL: Routine screening. Family history of breast cancer. Comparison is made to exams dated: 02/18/2023 mammogram, 02/16/2022 mammogram, 01/05/2021 mammogram, and 11/22/2019 mammogram - [facility]. Both breasts are heterogeneously dense, which may obscure small masses (category c / 51-75% glandular tissue). Current study was also evaluated with a Computer Aided Detection (CAD) system. No significant masses, calcifications, or other findings are seen in either breast. There has been no significant interval change. IMPRESSION: NEGATIVE There is no mammographic evidence of malignancy. A 1 year screening mammogram is recommended. Based on the Tyrer Cuzick model (a risk assessment model) the patient's lifetime risk is 8.2% and her 10 year risk is 6.1%. According to the ACR, ACS, and NCCN guidelines, an annual breast MRI exam along with mammogram is recommended if the patient's lifetime risk is 20% or greater. This exam was interpreted at Station ID: [id number]. NOTE: For mammograms, a report in lay terms will be sent to the patient. Approximately 15% of breast malignancies will not be visualized mammographically. In the management of a palpable breast mass, a negative mammogram must not discourage biopsy of a clinically suspicious lesion. Electronically Signed By: Nolan ochoa/donal:02/24/2024 11:58:17 letter sent: Normal Exam ACR BI-RADS Category 1: Negative 3341F
== END ==
PROVIDERS: PCP Physician Assistant; Referring Provider Physician Assistant; Visit Provider Physician Assistant
DX: Z12.31 Encounter for screening mammogram for malignant neoplasm of breast (principal); Z80.3 Family history of malignant neoplasm of breast; R92.333 Mammographic heterogeneous density, bilateral breasts
CPT/HCPCS: 77063; 77067

== ENCOUNTER → 2025-02-11 07:57 | Outpatient (CLI) | payer MEDICARE, SELFPAY ==
--- NOTE | 2025-02-11 07:58 | DI.ECHO.S_ITS ---
[place] [facility]---------+ [facility] : : [address] : : [place] : : [id number] : : Phone: [phone] Echocardiogram Report + + :Name: DIANNE LIANG Study Date: 02/11/2025 Height: 67 in : :Hospital ReadingLocation: Weight: 133 lb : : Gender: Female BSA: 1.7 m2 : :: 1950 Age: 74 yrs BP: 124/71 mmHg: :Reason For Study: CORONARY ARTERY CALCIFICATION : :Ordering Physician: MAHESH, : :SOFI Walsh Performed By: Orquidea Carnes : :Referring: SOFI PRIETO : + + Interpretation Summary The patient was in sinus bradycardia with heart rates between 49-65 bpm during the exam. The ejection fraction is estimated to be 60-65%. Diastolic parameters suggest probable normal left ventricular diastolic function and normal filling pressures. The right ventricle is normal in size and function. There is mild mitral regurgitation. There is mild tricuspid regurgitation. The right ventricular systolic pressure is estimated to be at least 27 mmHg based on an estimated right atrial pressure of 3 mm Hg. Procedure: A two-dimensional transthoracic echocardiogram with color flow and Doppler was performed. The study quality was technically adequate. There is no prior echocardiogram noted for this patient. The patient was in sinus bradycardia with heart rates between 49-65 bpm during the exam. Left Ventricle: The left ventricle is normal in size and wall thickness. The ejection fraction is estimated to be 60-65%. Diastolic parameters suggest probable normal left ventricular diastolic function and normal filling pressures. Right Ventricle: The right ventricle is normal in size and function. Atria: The left atrial size is normal. Right atrial size is normal. There is no Doppler evidence for an interatrial shunt. Mitral Valve: The mitral valve leaflets appear mildly thickened, but open well. There is mild mitral regurgitation. Aortic Valve: The aortic valve is trileaflet. The aortic valve opens well. There is no aortic valve stenosis. There is trace aortic regurgitation. Tricuspid Valve: The tricuspid valve leaflets are thin and pliable. There is mild tricuspid regurgitation. The right ventricular systolic pressure is estimated to be at least 27 mmHg based on an estimated right atrial pressure of 3 mm Hg. Pulmonic Valve: The pulmonic valve leaflets are thin and pliable; valve motion is normal. There is mild pulmonic regurgitation. Great Vessels: The aortic root is normal size. The dimensions of the ascending aorta are normal. The IVC is of normal diameter and collapses greater than 50% with a sniff. This suggests a low right atrial pressure of 3 mm Hg. Pericardium/ Pleura There is no pericardial effusion. There is no pleural effusion. MMode/2D Measurements & Calculations LVIDd: 4.3 cm LVOT diam: 2.0 cm LVIDs: 2.8 cm Ao root diam: 2.6 cm FS: 34.8 % asc Aorta Diam: 2.9 cm EPSS: 0.17 cm Ao Arch Diam (Prox Trans): 2.1 cm IVSd: 0.82 cm LVPWd: 0.75 cm LV churchill. diameter/BSA (cm/m^2): 2.5 LV sys. diameter/BSA (cm/m^2): 1.7 LA A2 area: 13.8 cm2 RA long axis: 4.8 cm LA A4 area: 16.7 cm2 RA area: 15.0 cm2 LA length (vol): 4.8 cm RA vol: 39.4 ml LA vol: 41.0 ml RA : 23.2 ml/m2 LA vol index: 24.1 ml/m2 IVC diam: 1.1 cm RVD1 (basal): 2.9 cm RVD2 (mid): 2.9 cm TAPSE: 2.4 cm Doppler Measurements & Calculations Ao V2 max: 180.6 cm/sec LVOT Max Jama: 85.2 cm/sec Ao V2 mean: 121.2 cm/sec LV V1 max P.9 mmHg Ao max P.1 mmHg LV V1 VTI: 21.1 cm Ao mean P.6 mmHg IMELDA(I,D): 1.5 cm2 Ao V2 VTI: 44.8 cm IMELDA(V,D): 1.5 cm2 sev ratio: 0.47 IMELDA indexed to BSA (cm^2/m^2): 0.85 MV E max jama: 94.3 cm/sec TR max jama: 244.8 cm/sec MV A max jama: 76.9 cm/sec TR max P.0 mmHg MV E/A: 1.2 PA V2 max: 93.6 cm/sec Med Peak E' Jama: 9.0 cm/sec PA V2 mean: 64.8 cm/sec E/E' med: 10.5 PA mean P.9 mmHg Lat Peak E' Jama: 9.8 cm/sec PA pr(Accel): -10.9 mmHg E/E' lat: 9.7 E/e' average: 10.1 MV dec time: 0.15 sec SV(LVOT): 65.0 ml Reading Physician:12:27 PM
== END ==
PROVIDERS: PCP Physician Assistant; Referring Provider Internal Medicine Cardiovascular Disease; Visit Provider Internal Medicine Cardiovascular Disease
DX: I08.1 Rheumatic disorders of both mitral and tricuspid valves (principal); I25.10 Atherosclerotic heart disease of native coronary artery without angina pectoris
CPT/HCPCS: 93306

== ENCOUNTER → 2025-02-26 10:38 | Outpatient (CLI) | payer OTHER, SELFPAY ==
--- NOTE | 2025-02-26 10:43 | DI.MG.S_ITS ---
MM screening mammo BI: 02/26/2025. BI-RADS: 0 CLINICAL: 74-year old female for bilateral screening mammogram. Tyrer-Cuzick lifetime risk of 5.1%. No personal or first-degree family history of breast cancer. Current reported family history of breast cancer: paternal aunt's daughter. PRIOR EXAMS 02/24/2024, 02/18/2023, 02/16/2022, 01/05/2021, 11/22/2019, 11/08/2018, 11/04/2017, 10/01/2016, 09/22/2015. MAMMOGRAPHY TECHNIQUE: 2D and 3D (tomosynthesis) digital mammographic views obtained, with additional images as needed for full coverage. Current study was also evaluated with a Computer Aided Detection (CAD) system. DENSITY C. The breasts are heterogeneously dense, which may obscure small masses. MAMMOGRAPHY FINDINGS Right: Upper Inner at 1:00, Anterior depth: Focal asymmetry needing additional imaging evaluation. Left: No suspicious mass, asymmetry, microcalcification, or other abnormality seen. No significant change from comparison. IMPRESSION: Right (Asymmetry): Upper Inner at 1:00, Anterior depth * Incomplete - focal asymmetry needing additional imaging evaluation. Left * No evidence of malignancy. RECOMMENDATIONS Right: Upper Inner at 1:00, Anterior depth * Further evaluation with diagnostic mammography and diagnostic ultrasound. Ultrasound to be performed only if needed. OVERALL ASSESSMENT CATEGORY BI-RADS-0: Incomplete - Need Additional Imaging Evaluation. ELECTRONICALLY SIGNED: Mirlande Wooten M.D. on 02/26/2025 at 05:24:21 PM PT Interpreting Station ID: [id number]
== END ==
PROVIDERS: PCP Physician Assistant; Referring Provider Physician Assistant; Visit Provider Physician Assistant
DX: Z12.31 Encounter for screening mammogram for malignant neoplasm of breast (principal); Z80.3 Family history of malignant neoplasm of breast; R92.333 Mammographic heterogeneous density, bilateral breasts
CPT/HCPCS: 77063; 77067

== ENCOUNTER → 2025-02-27 11:05 | Outpatient (CLI) | payer OTHER, SELFPAY ==
[2025-02-27 12:42] LABS: Cholesterol 191 mg/dL (140-199); HDL Cholesterol 80 mg/dL (40-60); LDL Cholesterol Calculated 105 mg/dL (<100); Triglycerides 31 mg/dL (35-150)
[2025-02-27 14:46] LABS: Thyroid Stimulating Hormone < 0.015 uIU/mL (0.47-4.68)
== END ==
PROVIDERS: PCP Physician Assistant; Referring Provider Internal Medicine Cardiovascular Disease; Visit Provider Internal Medicine Cardiovascular Disease
DX: E78.5 Hyperlipidemia, unspecified (principal)
CPT/HCPCS: 36415; 80061; 84439; 84443

== ENCOUNTER → 2025-03-28 10:07 | Outpatient (CLI) | payer OTHER, SELFPAY ==
--- NOTE | 2025-03-28 10:09 | DI.US.S_ITS ---
MM diagnostic mammo unilat RT, US breast RT limited: 03/28/2025 BI-RADS: 1 CLINICAL: 74-year old female for right diagnostic mammogram and right diagnostic breast ultrasound that is a recall from screening on 02/26/2025. Tyrer-Cuzick lifetime risk of 5.1%. No personal or first-degree family history of breast cancer. Current reported family history of breast cancer: paternal aunt's daughter. PRIOR EXAMS Mammogram(s): 02/26/2025. 11 Other Exams on 02/24/2024, 02/18/2023, 02/16/2022, MAMMOGRAPHY TECHNIQUE: 2D and 3D (tomosynthesis) digital mammographic views obtained, with additional images as needed for full coverage. Current study was also evaluated with a Computer Aided Detection (CAD) system. ULTRASOUND TECHNIQUE Real-time sorto scale imaging of the area of clinical interest was performed with image documentation. TARGETED Right Breast Ultrasound: Real-time ultrasound exam was performed focused to area of clinical and/or imaging concern. DENSITY Right: C. The breasts are heterogeneously dense, which may obscure small masses. MAMMOGRAPHY FINDINGS Right: Upper Inner at 1:00: The previously seen asymmetry is less prominent and resembles normal fibroglandular tissue. ULTRASOUND FINDINGS Right: Upper Inner at 1:00: There is no sonographic correlate for the mammographic finding, which is consistent with normal fibroglandular tissue. No suspicious sonographic finding present. IMPRESSION: Right * No evidence of malignancy. RECOMMENDATIONS Bilateral * Annual screening mammography. OVERALL ASSESSMENT CATEGORY BI-RADS-1: Negative. The [employer] recommends annual screening mammography beginning at age 40 for women with average risk of breast cancer. ELECTRONICALLY SIGNED: Mahesh Varma M.D. on 03/28/2025 at 08:12:12 PM PT Interpreting Station ID: [id number]
== END ==
PROVIDERS: PCP Physician Assistant; Visit Provider Physician Assistant
DX: R92.8 Other abnormal and inconclusive findings on diagnostic imaging of breast (principal); R92.331 Mammographic heterogeneous density, right breast; Z80.3 Family history of malignant neoplasm of breast
CPT/HCPCS: 76642; 77065; G0279

== ENCOUNTER → 2025-04-30 16:55 | Outpatient (CLI) | payer OTHER, SELFPAY ==
--- NOTE | 2025-04-30 17:01 | DI.RAD.S_ITS ---
PROCEDURE: XR FOOT RT MIN 3V INDICATIONS: RT FOOT PAIN TECHNIQUE: 3 views of the foot were acquired. COMPARISON: None. FINDINGS: Bones: Transverse nondisplaced fracture across the 5th metatarsal base appreciated. Mild pes planus and hammertoe deformities 2nd through 5th digits Joints: Mild degeneration 1st MTP and 2nd through 5th interphalangeal joints Soft tissues: No soft tissue abnormality. IMPRESSION: Transverse nondisplaced fracture-5th metatarsal base Dictated by: Gamaliel Garcia M.D. on 05/01/2025 at 11:14 Approved by: Gamaliel Garcia M.D. on 05/01/2025 at 11:15
== END ==
PROVIDERS: PCP Physician Assistant; Referring Provider Internal Medicine; Visit Provider Internal Medicine
DX: S92.354A Nondisplaced fracture of fifth metatarsal bone, right foot, initial encounter for closed fracture (principal); M21.41 Flat foot [pes planus] (acquired), right foot; M20.41 Other hammer toe(s) (acquired), right foot; M19.071 Primary osteoarthritis, right ankle and foot; M79.671 Pain in right foot; W10.9XXA Fall (on) (from) unspecified stairs and steps, initial encounter
CPT/HCPCS: 73630